=== PATIENT | female | born 1990 | race Caucasian/White ===

== ENCOUNTER 2022-12-09 15:30 | Emergency (ER) | payer MEDICAID ==
[~2022-12-09] VITALS: Ht 160 cm; Wt 65.8 kg
[2022-12-09 15:33] VITALS: BP 140/76
--- NOTE | 2022-12-09 15:56 | NUR ---
PT REFUSING BLOODWORK AT THIS TIME
--- NOTE | 2022-12-09 15:57 | NUR ---
Patient does not wish to proceed with medical care recommended by DR ALTMAN. Patient given information related to possible complications, up to and including , which could occur as a result of leaving hospital at this time. Patient verbalizes understanding of risks involved leaving against medical advice. Patient has signed AMA form.
== END 2022-12-09 16:00 | disposition left against medical advice (07) ==
LOC: MED 15:30
DX: F11.90 Opioid use, unspecified, uncomplicated (principal); F41.9 Anxiety disorder, unspecified; R25.1 Tremor, unspecified
CPT/HCPCS: 99283